=== PATIENT | male | born 2000 | race Two or more races ===

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

== ENCOUNTER 2019-01-29 04:37 | Emergency (ER) | payer OTHER ==
[~2019-01-29] VITALS: Ht 188 cm; Wt 75.0 kg
[2019-01-29] MEDS ORDERED: ACETAMINOPHEN 500 MG TABLET PO ONE (05:30)
[2019-01-29] MEDS ORDERED: SODIUM CHLORIDE FLUSH 10ML SYR IVF ONE (05:30)
[2019-01-29] MEDS ORDERED: ONDANSETRON 2MG/ML, 2ML IVPush ONE (05:30)
[2019-01-29 05:31] LABS: BASOPHILS # (AUTO) 0.01 x10^3/uL (0-0.3); BASOPHILS % (AUTO) 0 % (0-1); EOSINOPHILS # (AUTO) 0.01 x10^3/uL (0-0.8); EOSINOPHILS % (AUTO) 0 % (1-7); LYMPHOCYTES # (AUTO) 0.52 x10^3/uL (1-6.1); LYMPHOCYTES % (AUTO) 7 % (22-44); MD NO; MEAN CORPUSCULAR HEMOGLOBIN 31.8 pg (27.5-34.5); MEAN CORPUSCULAR HGB CONC 33.8 g/dL (33.2-36.2); MEAN CORPUSCULAR VOLUME 94.1 fL (81-97); MEAN PLATELET VOLUME 8.7 fL (7.4-10.4); MONOCYTES # (AUTO) 1.14 x10^3/uL (0-1.4); MONOCYTES % (AUTO) 16 % (2-9); NEUTROPHILS # (AUTO) 5.53 x10^3/uL (1.8-8.0); NEUTROPHILS % (AUTO) 77 % (42-75); PLATELET COUNT 193 x10^3/uL (130-400); RED BLOOD COUNT 5.19 x10^6/uL (4.38-5.82); RED CELL DISTRIBUTION WIDTH 13.1 % (9.4-14.8)
[2019-01-29] MEDS ORDERED: ONDANSETRON 2MG/ML, 2ML ONE (05:31)
[2019-01-29 05:32] LABS: RAPID INFLUENZA A Negative (Negative); RAPID INFLUENZA B Negative (Negative)
[2019-01-29] MEDS ORDERED: ACETAMINOPHEN 500 MG TABLET ONE (05:32)
[2019-01-29 06:47] VITALS: BP 129/74
== END 2019-01-29 06:49 | disposition home or self-care (01) ==
LOC: ED 06:15
DX: B34.9 Viral infection, unspecified (principal); R11.2 Nausea with vomiting, unspecified; M79.10 Myalgia, unspecified site
CPT/HCPCS: 36415; 71046; 85025; 87400; 96374; 99284; J2405